=== PATIENT | female | born 1945 | race African-American/Black ===

== ENCOUNTER 2016-12-05 08:08 | Emergency (ER) | payer MEDICARE, OTHER ==
[2016-12-05 08:51] VITALS: RESP 16; TEMP 98; O2SAT 99
[2016-12-05] MEDS ORDERED: ASPIRIN 81 MG CHEWABLE CTB ONE (08:51)
[2016-12-05] MEDS ORDERED: ASPIRIN 81 MG CHEWABLE CTB PO ONE (09:00)
[2016-12-05] MEDS ORDERED: ASPIRIN 325 MG TAB PO SCH (09:00)
[2016-12-05 09:04] LABS: BASOPHILS % (AUTO) 1 % (0-3); EOSINOPHILS % (AUTO) 4 % (0-9); HEMATOCRIT 36 % (35-47); MEAN CORPUSCULAR HGB CONC 33.8 gm/dl (32.0-36.0); MEAN CORPUSCULAR VOLUME 94 fL (81-99); MONOCYTES % (AUTO) 8.4 % (0-12); NEUTROPHILS % (AUTO) 60.7 % (37-80)
[2016-12-05 09:19] LABS: ALBUMIN 3.5 gm/dl (3.4-5.0); CALCIUM 8.1 mg/dl (8.5-10.1); MAGNESIUM 1.8 mg/dl (1.8-2.4)
[2016-12-05 10:00] LABS: APPEARANCE,URINE Clear; BILIRUBIN,URINE NEGATIVE (NEGATIVE); COLOR,URINE Yellow; GLUCOSE, URINE (UA) NEGATIVE (NEGATIVE); KETONES,URINE NEGATIVE (NEGATIVE); LEUKOCYTE ESTERASE ,URINE TRACE (NEGATIVE); NITRATE,URINE NEGATIVE (NEGATIVE); OCCULT BLOOD,URINE NEGATIVE (NEG-TRACE)
[2016-12-05 10:12] LABS: RBC,URINE NEG (0-3AV/HPF); WBC,URINE NEG (0-5AV/HPF)
[2016-12-05] MEDS ORDERED: HALOPERIDOL 1 MG TAB PO SCH (10:15)
[2016-12-05] MEDS ORDERED: HALOPERIDOL 1 MG TAB ONE (10:32)
[2016-12-05 11:35] VITALS: BP 137/68; PULSE 67
== END 2016-12-05 10:42 | disposition home or self-care (01) | DRG 66 ==
LOC: ED 08:08
DX: I63.9 Cerebral infarction, unspecified (principal); R25.9 Unspecified abnormal involuntary movements
CPT/HCPCS: 36415; 70450; 80053; 81001; 83735; 85025; 93005; 99284